=== PATIENT | female | born 2000 | race Caucasian/White ===

== ENCOUNTER 2022-06-05 12:17 | Emergency (ER) | payer SELFPAY ==
[~2022-06-05] VITALS: Ht 160 cm; Wt 50.0 kg
[2022-06-05 13:05] VITALS: BP 105/67
== END 2022-06-05 15:11 | disposition home or self-care (01) ==
LOC: ER 12:18
DX: G56.21 Lesion of ulnar nerve, right upper limb (principal)
CPT/HCPCS: 29260; 99283